=== PATIENT | female | born 1995 | race Caucasian/White ===

== ENCOUNTER 2020-01-19 05:00 | Emergency (ER) | payer OTHER ==
[~2020-01-19] VITALS: Ht 165.1 cm; Wt 77.1 kg
[2020-01-19 05:00] VITALS: BP 137/83
--- NOTE | 2020-01-19 05:00 | NUR ---
PT VERONICA RETANA. AMBULATED WITHOUT ASSISTANCE FROM EMS GURNEY TO ER BED 6
--- NOTE | 2020-01-19 05:11 | NUR ---
Dr. Farrell examining patient.
--- NOTE | 2020-01-19 05:11 | NUR ---
PT VERONICA SHIPLEYS
--- NOTE | 2020-01-19 05:11 | NUR ---
24 Y/O FEMALE C/O DIFFICULTY SWALLOWING AT MIDNIGHT. PT DENIES ANY PAIN OR TRAUMA. PT'S AIRWAY IS PATENT. PT'S THROAT HAS SOME ERYTHEMA WITH MINIMAL SWELLING OF TONSILS. PT ABLE TO SPEAK IN FULL SENTENCES. RR 18 EVEN AND UNLABORED WITH O2 SAT 99% ON ROOM AIR. PT ABLE TO SWALLOW WITH NO DIFFICULTY UPON EXAMINATION. RR EVEN AND UNLABORED. DENIES N/V/D; SKIN IS PINK/WARM/DRY; AAOX4 WITH EVEN AND STEADY GAIT; LUNGS CLEAR BL; HR EVEN AND REGULAR; PT DENIES ANY FEVER, CP, OR COUGH AT THIS TIME; PATIENT STATES PAIN OF 0/10 AT THIS TIME; VSS; PATIENT POSITIONED FOR COMFORT; HOB ELEVATED; BEDRAILS UP X1; BED DOWN AND LOCKED. MEDICAL HX: PT DENIES NKA
--- NOTE | 2020-01-19 05:22 | NUR ---
PER GIVE PT SOME FOOD TO SEE HOW SHE TOLERATES SWALLOWING. PT ABLE TO EAT A FEW BITES OF SANDWHICH AND DRINK WATER WITH NO ISSUES. PT JUST STATED HER THROAT WAS REALLY DRY, TO WHICH WATER HELPED .
--- NOTE | 2020-01-19 05:25 | NUR ---
PT TAKEN TO XRAY VIA WHEELCHAIR
--- NOTE | 2020-01-19 05:35 | NUR ---
PT RETURN FROM XRAY
--- NOTE | 2020-01-19 05:37 | NUR ---
PT RETURNED FROM XRAY VIA WHEELCHAIR. VSS. WILL CONTINUE TO MONITOR .
[2020-01-19 05:50] VITALS: BP 137/83
--- NOTE | 2020-01-19 05:50 | NUR ---
Patient discharged with v/s stable. Written and verbal after care instructions given and explained. Patient verbalized understanding. Ambulatory with steady gait. All questions addressed prior to discharge. Advised to follow up with PMD.
== END 2020-01-19 05:50 | disposition home or self-care (01) ==
LOC: MED 05:00
DX: F41.8 Other specified anxiety disorders (principal); R03.0 Elevated blood-pressure reading, without diagnosis of hypertension; Z98.890 Other specified postprocedural states
CPT/HCPCS: 70360; 99283